=== PATIENT | male | born 1945 | race Caucasian/White ===

== ENCOUNTER → 2018-05-29 | Day surgery (SDC) | payer OTHER ==
[~2018-05-29] MED LIST: ADULT LOW DOSE81 MG PO; AMARYL4 MG PO; ATENOLOL 25 MG25 M1 PG; ATENOLOL 25 MG25 M1 PO; AVANDIA; BETIMOL10 ML OP; CALCIUM 600 WI1 EAC2 PO; CEFAZOLIN 1GM VI1 G1 IV; CHERATUSSIN DA480 ML PO; CIPRO250 M1; CIPROFLOXACIN500 M3; CLONAZEPAM 1 MG1 M1 PO; COLACE100 MG; COLACE100 MG PO; COLCHICINE 0.60.6 M1; COSOPT EYE DROPS5 ML; FLOMAX; FLOMAX0.4 MG PO; GLUCOPHAGE1000 MG PO; GLUCOSAMINE &1 EACH PO; GLUCOTROL5 MG PO; IRON325 PO; JANUVIA100 MG PO; LANTUS SUBQ; LEVAQUIN 500 M500 MG PO; LEVEMIR FL100 UNIT/2 SUBQ; LEVOTHROID200 MCG PO; LEVOTHYROXINE 0.1 MG PO; LISINOPRIL10 MG PO; LISINOPRIL5 MG PO; LUMIGAN2.5 ML OP; MIRAPEX 0.250.25 M1; MIRAPEX0.25 MG PO; MULTI VITAMIN1 EACH PO; MULTI-VITAMIN1 EAC4; NOVOLOG100 UNIT/1; NUVIGIL PO; OXYBUTYNIN 5 MG5 M2 PO; PREDNISONE 10 M10 M1; SANCTURA20 MG PO; SERTRALINE HCL100 MG PO; SIMVASTATIN40 MG PO; SIMVASTATIN80 MG PO; SYNTHROID PO; TAMSULOSIN HCL0.4 MG; VICODIN; ZOLOFT100 MG PO
[2018-05-29 12:49] LABS: HEMOGLOBIN 11.1 gm/dL (14.0-18.0); MCH 30.7 pg (26.0-34.0); MCHC 33.5 g/dL (28.0-37.0); MCV 91.7 fL (80.0-100.0); MPV 7.4 fl. (7.2-11.1); RBC 3.6 mil/uL (4.50-6.00); RDW-CV 17.5 % (10.5-14.5); WBC 3.7 thou/uL (4.0-11.0)
[2018-05-29 12:55] LABS: CREATININE 1.7 mg/dL (0.6-1.3); POTASSIUM 4.4 mmol/L (3.5-5.1)
--- NOTE | 2018-05-29 16:48 | EKG ---
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: : [id number] Requested By: Brandon Brody Order Number: [id number] Reading MD: Krystian Alejandra Measurements Intervals [place] Rate: 64 P: 21 [place]: 202 QRS: 21 QRSD: 117 T: 4 QT: 447 QTc: 462 Interpretive Statements Sinus rhythm Probable left atrial enlargement Nonspecific intraventricular conduction delay Compared to ECG 04/30/2012 10:47:39 Intraventricular conduction delay now present Electronically Signed On 05-29-2018 16:47:57 [employer] by Krystian Alejandra [email or web address] <ELECTRONICALLY SIGNED> By: Krystian Alejandra MD, [facility] 05/29/18 1647 1259 1259 Krystian Alejandra MD, FACC /EPI
--- NOTE | 2018-06-05 13:08 | PATH ---
[address] [address] PATHOLOGY RPT PROCEDURE Name: TINO JENKINS Room: [facility].R.#: [id number] Admission: 05/29/18 Date of : 47 Discharge: Report #: [id number] Path Case #: [id number] [facility] Accession Number: [id number] . 01 Material submitted: . LEFT SECOND TOE . 01 Clinical history: . Osteomyelitis . 02 Diagnosis: Left second toe: - Benign toe with distal disruption in region of missing nail and with adjacent nonspecific ulceration, acute inflammation of soft tissues and prominent osteomyelitis of phalangeal bones. - Proximal disarticulation margin free of osteomyelitis. ([facility]; 06/04/2018) QMS/06/04/2018 . 02 Electronically signed: . Mervin Quiros MD, Pathologist NPI- [id number] . 01 Gross description: . Received in formalin labeled "Tino Jenkins L second toe," is a digit amputation specimen measuring 5.9 x 2.3 x 2.2 cm in greatest dimensions. The bone margin is smooth and concave in appearance, consistent with disarticulation. The nail is absent and the nailbed appears previously excised, displaying a disrupted area measuring 1.3 x 1.2 cm and up to 0.3 cm deep (inked blue). A granular, dark arana-brown lesion is present on the distal aspect epidermal surface immediately inferior to the nailbed excision site, extending to within 2.7 cm of the nearest soft tissue margin (plantar aspect). The distal lateral aspect epidermal surface is raised, flaky, granular and pale white-arana in appearance. The bone and soft tissue margins are inked black. A full-thickness cross-section is submitted proximal-distal in cassettes A1 through A3, following decalcification. Additional public service representative sections of the distal aspect lesion, lateral aspect thickened area, and nailbed excision site are submitted in cassette A4. ([facility]; 06/01/2018) XDC/XDC . 02 Pathologist provided ICD-10: M86.8X7 . 02 CPT . 945826, 032392 Specimen Comment: A courtesy [place] of [place] [address] PATHOLOGY RPT PROCEDURE Name: TINO JENKINS Room: [facility].#: [id number] Admission: 05/29/18 Date of : 47 Discharge: Report #: [id number] Path Case #: [id number] Specimen Comment: [phone], , . Specimen Comment: Report sent to ,DR STONE / DR HAMMOND Specimen Comment: A duplicate report has been generated due to demographic updates. Performed at: [address], [place], [place] [id number] MD Carter Senior MD Phone: [phone] Performed at: [facility] [place] [address], [place], [place] [id number] MD Mervin Quiros MD Phone: [phone]
--- NOTE | 2018-06-20 13:02 | OP ---
[address] [address] OPERATIVE REPORT Name: TINO JENKINS Room: [facility].#: [id number] Admission: 05/29/18 Attend Phys: Brandon Brody DPM Discharge: Date of : 47 Report #: [id number] THIS REPORT FOR: //name// CC: Brandon Reid Tino Osman DATE OF SERVICE: 05/29/2018 SURGEON: Brandon Brody DPM PREOPERATIVE DIAGNOSIS: Osteomyelitis, left second toe with nonhealing ulceration. POSTOPERATIVE DIAGNOSIS: Osteomyelitis, left second toe with nonhealing ulceration. PROCEDURE: Amputation, left second digit with primary closure. ANESTHESIA: MAC. INJECTABLES: Roughly 20 mL of a 1:1 mixture of 0.5% Marcaine plain and 1% lidocaine plain. ESTIMATED BLOOD LOSS: Minimal. HEMOSTASIS: Left ankle pneumatic tourniquet at 250 mmHg. SPECIMENS: Left second toe. CULTURES: Soft tissue, left second toe for aerobic and anaerobic. SUTURES: 3-0 nylon. COMPLICATIONS: None. DESCRIPTION OF PROCEDURE: The patient was brought to the OR and placed on the table supine with induction of MAC anesthesia. A well-padded left ankle pneumatic tourniquet was placed. A local anesthetic block was given to the foot and the extremity was prepped and draped aseptically. After exsanguination, the tourniquet was inflated and a #15 scalpel was used to create a tennis racquet incision circumferentially around the second toe and across the distal second metatarsal. Layered anatomic dissection utilized with an electrocautery used for hemostasis. Exposure down to the second MTP and the second toe was disarticulated and sent for pathology. A portion of soft tissue from the distal second toe was sent for aerobic and [place] [address] OPERATIVE REPORT Name: TINO JENKINS [id number] Admission: 05/29/18 Attend Phys: Brandon Brody DPM Discharge: Date of : 47 Report #: [id number] were debrided from the wound and the skin margins were remodeled. The wound was flushed with sterile saline and bacitracin irrigant and dried. The skin was then closed with 3-0 nylon in simple interrupted fashion. The tourniquet was deflated with vascular return to the michelle-incision. A sterile bandage with Betadine-soaked Adaptic, 4 x 4s, Kerlix and Maikel wrap were applied. The patient left the OR alert and oriented with no complications. <ELECTRONICALLY SIGNED> By: Brandon Brody DPM 06/20/18 1302 1701 1851Delvia Brody DPM /nt
== END | disposition home or self-care (01) ==
LOC: M.SUR 06:59
PROVIDERS: Podiatrist Foot & Ankle Surgery
DX: M86.8X7 Other osteomyelitis, ankle and foot (principal); L97.528 Non-pressure chronic ulcer of other part of left foot with other specified severity; Z79.82 Long term (current) use of aspirin; Z79.899 Other long term (current) drug therapy